=== PATIENT | male | born 1970 | race Caucasian/White ===

== ENCOUNTER 2018-01-10 17:50 | Emergency (ER) | payer OTHER ==
--- NOTE | 2018-01-10 18:13 | Emergency Department Report ---
Stated Complaint: PAIN IN LEFT THIGH - HPI History of Present Illness: 47-year-old male past medical history diabetes sent by retirement facility. Patient is in custody with corrections officers at bedside. As per patient he was sent by retirement medical staff for evaluation of cellulitis/abscess to left thigh/knee. Patient states that he has had intermittent pain swelling and changes in skin color and texture overlying the left thigh/knee for 1 month. States it has intermittently gotten better and worsened over the last several weeks. Patient states that he has pain with full extension of knee. Patient is ambulatory without assistance. Denies fevers or chills at this time. Patient is Korean-speaking which I speak fluently. Accompanied by correction officers at bedside - ROS Review of Systems: Intermittent cellulitis and left thigh pain for 1 month - Exam Physical Exam: There appears to be some induration of skin overlying the left lateral distal thigh superior to the left lateral knee area. Area of approximately 10-12 cm. Appears to have no fluctuance at this time but does have induration and skin thickening. Patient states that there was pus draining from this area at some point over the last 2 weeks. Patient is able to range left knee can flex and extend left knee but cannot fully extend left knee. No significant erythema at this time. MSE screening note: Focused history and physical exam performed. Due to findings the following was ordered: Screening Assessment/Plan/Differential Dx: Left thigh/knee pain, cellulitis versus left thigh myositis versus abscess left thigh/knee 1- This initial assessment/diagnostic orders/clinical plan/ treatment(s) is/are subject to change based on pt's health status, clinical progression and re- assessment by fellow clinical providers in the ED. Further treatment and workup at subsequent clinical provers discretion. Patient/guardians urged not to elope from ED as their condition may be serious if not clinically assessed and managed. 2-as per patient he has been on several rounds of antibiotics with minimal improvement of his symptoms. This is confirmed by paperwork from medical staff from corrections facility 3-basic labs, CBC, BMP, lactic acid, CK 4-as patient was sent by from retirement facility with orders for request for CT and ultrasound I will order basic workup and defer further care and management ED attending ED Disposition for MSE Condition: Stable
[2018-01-10] MEDS ORDERED: TORADOL IV ONE (18:26)
[2018-01-10 18:53] LABS: Basophils % (Auto) 0.3 % (0.0-1.8); Eosinophils % (Auto) 0.9 % (0.0-4.3); Hematocrit 37.5 % (35.5-45.6); Hemoglobin 12.2 gm/dl (11.8-15.2); Lymphocytes # (Auto) 1.5 K/mm3 (1.2-5.4); Lymphocytes % (Auto) 35.6 % (13.4-35.0); Mean Corpuscular HGB Conc 33 % (32-34); Mean Corpuscular Volume 76 fl (84-94); Monocytes # (Auto) 0.4 K/mm3 (0.0-0.8); Monocytes % (Auto) 8.2 % (0.0-7.3); Platelet Count 277 K/mm3 (140-440); Red Blood Count 4.97 M/mm3 (3.65-5.03); Red Cell Distribution Width 14.3 % (13.2-15.2)
[2018-01-10 18:56] LABS: Mean Corpuscular Hemoglobin 25 pg (28-32)
[2018-01-10 19:16] LABS: BUN/Creatinine Ratio 23; Blood Urea Nitrogen 16 mg/dL (9-20); Calcium 9.6 mg/dL (8.4-10.2); Hemolysis Index 258
[2018-01-10] MEDS ORDERED: NACL ONE (19:20)
--- NOTE | 2018-01-10 20:46 | Cat Scan Report ---
FINAL REPORT EXAM: CT LOWER EXTREMITY LT W CON HISTORY: cellulitis vs abscess distal lateral thigh TECHNIQUE: enhanced CT of the left thigh at 2.5 mm axial intervals. Coronal and sagittal reconstruction was also performed. Contrast: 100 cc Omnipaque 300 given IV PRIORS: None. FINDINGS: Bony structures: No evidence for acute fracture or dislocation is seen. Bony mineralization is normal. No focal cortical erosion or lucency is seen to suggest osteomyelitis. Joint spaces: Joint spaces are maintained. Soft tissues: There is an abnormal irregular fluid collection with marginal enhancement along the lateral aspect of the distal thigh adjacent to the metaphyseal region of the distal femur. This measures approximately 1.6 x 2.4 x 3.8 cm (axial image 194, coronal image 72, and sagittal image 124). No internal air is seen. Findings are suspicious for abscess. There is significant subcutaneous edema surrounding this region along the lateral aspect of the knee. No radiopaque foreign bodies are noted. IMPRESSION: Small irregular fluid collection with marginal enhancement along the lateral aspect of the distal thigh adjacent to the metaphyseal region of the femur. Findings are consistent with abscess. Surrounding subcutaneous edema is noted in the lateral knee region.
--- NOTE | 2018-01-10 22:52 | Emergency Department Report ---
ED Extremity Problem HPI - General Chief complaint: Skin/Abscess/Foreign Body Stated complaint: PAIN IN LEFT THIGH Time Seen by Provider: 01/10/18 18:24 Source: lang interpreter, RN notes reviewed Mode of arrival: Wheelchair Limitations: Language Barrier - History of Present Illness Initial comments: Patient is a 47-year-old [place] gentleman who is being brought in via police custody for evaluation of possible infection left lower leg. Patient states that in [place] before he was sent here was in the hospital for approximately a week for an infection to his distal thigh on the left. Patient will often last for approximately week and states that the pain and swelling is getting worse. Patient denies any fever nausea vomiting at this time. Patient states the pain is aching and 7 out of 10 in severity. Severity scale (0 -10): 10 - Related Data Previous Rx's Medication Instructions Recorded Last Taken Type Clindamycin [Clindamycin CAP] 300 mg PO Q8H #30 cap 01/10/18 Unknown Rx HYDROcodone/APAP 5-325 [[place] 1 each PO Q6HR PRN #12 tablet 01/10/18 Unknown Rx 5/325] Ibuprofen [Motrin] 800 mg PO Q8HR PRN #20 tablet 01/10/18 Unknown Rx Allergies Allergy/AdvReac Type Severity Reaction Status Date / Time No Known Allergies Allergy Unverified 01/10/18 18:48 ED Review of Systems ROS: Stated complaint: PAIN IN LEFT THIGH Other details as noted in HPI Comment: All other systems reviewed and negative ED Past Medical Hx - Past Medical History Previous Medical History?: Yes Hx Hypertension: Yes Hx Diabetes: Yes - Surgical History Past Surgical History?: No - Social History Smoking Status: Unknown if ever smoked Substance Use Type: None - Medications Home Medications: Home Medications Medication Instructions Recorded Confirmed Last Taken Type Clindamycin [Clindamycin CAP] 300 mg PO Q8H #30 cap 01/10/18 Unknown Rx HYDROcodone/APAP 5-325 [[place] 1 each PO Q6HR PRN #12 tablet 01/10/18 Unknown Rx 5/325] Ibuprofen [Motrin] 800 mg PO Q8HR PRN #20 tablet 01/10/18 Unknown Rx ED Physical Exam - General Limitations: Language Barrier General appearance: alert, in no apparent distress - Head Head exam: Present: atraumatic, normocephalic - Eye Eye exam: Present: normal appearance - ENT ENT exam: Present: mucous membranes moist - Neck Neck exam: Present: normal inspection - Respiratory Respiratory exam: Present: normal lung sounds bilaterally. Absent: respiratory distress, wheezes, rales - Cardiovascular Cardiovascular Exam: Present: regular rate, normal rhythm. Absent: systolic murmur, diastolic murmur, rubs, gallop - GI/Abdominal GI/Abdominal exam: Present: soft, normal bowel sounds. Absent: distended, tenderness, guarding, rebound - Rectal Rectal exam: Present: deferred - Extremities Exam Extremities exam: Present: normal inspection, other (patient has some very slight erythema to the distal lateral left thigh. There is no induration or fluctuance.) - Back Exam Back exam: Present: normal inspection - Neurological Exam Neurological exam: Present: alert, oriented X3 - Psychiatric Psychiatric exam: Present: normal affect, normal mood - Skin Skin exam: Present: warm, dry, intact, normal color. Absent: rash ED Course Vital Signs 01/10/18 18:06 Temperature 98.2 F Pulse Rate 94 H Blood Pressure 133/96 O2 Sat by Pulse 99 Oximetry ED Medical Decision Making - Lab Data Result diagrams: 01/10/18 18:30 01/10/18 21:41 Lab Results 01/10/18 01/10/18 01/10/18 Range/Units 18:30 18:30 21:41 WBC 4.3 L (4.5-11.0) K/mm3 RBC 4.97 (3.65-5.03) M/mm3 Hgb 12.2 (11.8-15.2) gm/dl Hct 37.5 (35.5-45.6) % MCV 76 L (84-94) fl MCH 25 L (28-32) pg MCHC 33 (32-34) % RDW 14.3 (13.2-15.2) % Plt Count 277 (140-440) K/mm3 Lymph % (Auto) 35.6 H (13.4-35.0) % [place] % (Auto) 8.2 H (0.0-7.3) % Eos % (Auto) 0.9 (0.0-4.3) % Baso % (Auto) 0.3 (0.0-1.8) % Lymph # 1.5 (1.2-5.4) K/mm3 [place] # 0.4 (0.0-0.8) K/mm3 Eos # 0.0 (0.0-0.4) K/mm3 Baso # 0.0 (0.0-0.1) K/mm3 Seg Neutrophils % 55.0 (40.0-70.0) % Seg Neutrophils # 2.4 (1.8-7.7) K/mm3 Sodium 136 L (137-145) mmol/L Potassium 5.7 H 4.7 (3.6-5.0) mmol/L Chloride 97.6 L (98-107) mmol/L Carbon Dioxide 25 (22-30) mmol/L Anion Gap 19 mmol/L BUN 16 (9-20) mg/dL Creatinine 0.7 L (0.8-1.5) mg/dL Estimated GFR > 60 ml/min BUN/Creatinine Ratio 23 % Glucose 89 (75-100) mg/dL Calcium 9.6 (8.4-10.2) mg/dL - Radiology Data Radiology results: report reviewed Patient on CT of his left lower extremity has a small abscess just adjacent to the distal femur largest with his 3-1/2 cm - Medical Decision Making Patient is a 47-year-old gentleman who is complaining of left lower leg pain. There is a very small abscess present. This abscesses deep and is overlying bone. No bony involvement appears to the present. Patient's white count was normal there is no fever. I did speak with Dr. Gipson with orthopedic surgery and he stated that the patient be placed on antibiotics and pain medicine will be discharged home for follow-up in his clinic. Critical care attestation.: If time is entered above; I have spent that time in minutes in the direct care of this critically ill patient, excluding procedure time. ED Disposition Clinical Impression: Abscess Disposition: [id number] TO HOME OR SELFCARE Is pt being admited?: No Does the pt Need Aspirin: No Condition: Stable Additional Instructions: To the group home physicians: Patient does have a very small abscess just adjacent to the distal femur. Case was discussed with orthopedic surgery was determined that the patient should be placed on antibiotics and discharged home. Patient can follow-up with orthopedics in clinic. Patient's laboratory studies were within normal limits. Patient is afebrile. Prescriptions: Clindamycin [Clindamycin CAP] 300 mg PO Q8H #30 cap HYDROcodone/APAP 5-325 [[place] 5/325] 1 each PO Q6HR PRN #12 tablet PRN Reason: Pain Ibuprofen [Motrin] 800 mg PO Q8HR PRN #20 tablet PRN Reason: Pain Referrals: KARY ARTHUR MD [Primary Care Provider] - 3-5 Days
[2018-01-11 00:01] VITALS: BP 133/91
== END 2018-01-10 23:05 | disposition home or self-care (01) ==
LOC: ED 17:50
DX: L02.416 Cutaneous abscess of left lower limb (principal); I10 Essential (primary) hypertension; E11.9 Type 2 diabetes mellitus without complications
CPT/HCPCS: 36415; 73701; 80048; 84132; 85025; 96374; 99284; J1885; Q9967